=== PATIENT | male | born 1960 | race Hispanic/Latino ===

== ENCOUNTER → 2024-08-20 | Outpatient (REF) | payer BC ==
[~2024-08-20] MED LIST: IOPAMIDOL 370 MG/ML 100 ML INFUS..BTL INJ ONE; SODIUM CHLORIDE 0.9% 250ML 250 ML ONE
[2024-08-20 13:11] LABS: CREATININE, SERUM 1.13 mg/dL (0.72-1.25)
== END ==
LOC: CT 12:22
PROVIDERS: ATTEND Urology
DX: R31.21 Asymptomatic microscopic hematuria (principal)
CPT/HCPCS: 36415; 74178; 82565; 84520; J7050; Q9967